=== PATIENT | male | born 1990 | race Caucasian/White ===

== ENCOUNTER 2016-08-18 11:44 | Emergency (ER) | payer OTHER ==
[~2016-08-18] VITALS: Ht 172.7 cm; Wt 71.4 kg
[2016-08-18 11:57] VITALS: BP 119/75
[2016-08-18] MEDS ORDERED: METHOCARBAMOL 750 MG TABLET ONE (12:25)
[2016-08-18] MEDS ORDERED: KETOROLAC 30 MG/1 ML ONE (12:25)
[2016-08-18] MEDS ORDERED: METHOCARBAMOL 750 MG TABLET PO ONE (12:30)
[2016-08-18] MEDS ORDERED: KETOROLAC 30 MG/1 ML IM ONE (12:30)
== END 2016-08-18 13:36 | disposition home or self-care (01) ==
LOC: ED 13:30
DX: S23.3XXA Sprain of ligaments of thoracic spine, initial encounter (principal); S29.012A Strain of muscle and tendon of back wall of thorax, initial encounter; T78.40XA Allergy, unspecified, initial encounter; X58.XXXA Exposure to other specified factors, initial encounter; Y93.89 Activity, other specified; Y92.89 Other specified places as the place of occurrence of the external cause; Y99.8 Other external cause status
CPT/HCPCS: 71101; 72072; 96372; 99284; J1885

== ENCOUNTER 2019-08-08 15:23 | Emergency (ER) | payer OTHER ==
[~2019-08-08] VITALS: Ht 175.3 cm; Wt 87.2 kg
[2019-08-08 15:25] VITALS: BP 121/80
--- NOTE | 2019-08-08 15:36 | NUR ---
[employer] BRIUGHT BACK AFTER WORSENING RASH TO BOTH HANDS, LEFT WORSE THAN RIGHT. CMS INTACT.
--- NOTE | 2019-08-08 16:16 | NUR ---
DISCHARGE INTRUCTIONS REVIEWED
--- NOTE | 2019-08-08 16:25 | NUR ---
Patient given discharge instructions and they have confirmed that they understand the instructions. Patient ambulatory with steady gait.
== END 2019-08-08 16:26 | disposition home or self-care (01) ==
LOC: ED 16:24
DX: L03.114 Cellulitis of left upper limb (principal); L30.1 Dyshidrosis [pompholyx]
CPT/HCPCS: 99283

== ENCOUNTER 2020-01-23 21:46 | Emergency (ER) | payer OTHER ==
[~2020-01-23] VITALS: Ht 175.3 cm; Wt 87.8 kg
[2020-01-23 21:53] VITALS: BP 124/76
[2020-01-23] MEDS ORDERED: MORPHINE SULFATE 4 MG/ML, 1ML IVPush PRN (23:00)
[2020-01-23] MEDS ORDERED: ONDANSETRON 2MG/ML, 2ML IVPush ONE (23:00)
[2020-01-23] MEDS ORDERED: SODIUM CHLORIDE FLUSH 10ML SYR IVF ONE (23:00)
[2020-01-23] MEDS ORDERED: ONDANSETRON 2MG/ML, 2ML ONE (23:03)
[2020-01-23] MEDS ORDERED: MORPHINE SULFATE 4 MG/ML, 1ML ONE (23:03)
[2020-01-23 23:25] LABS: BASOPHILS # (AUTO) 0.15 x10^3/uL (0-0.1); BASOPHILS % (AUTO) 1 % (0-1); EOSINOPHILS # (AUTO) 0.03 x10^3/uL (0-0.4); EOSINOPHILS % (AUTO) 0 % (1-7); LYMPHOCYTES # (AUTO) 1.95 x10^3/uL (1-3.4); LYMPHOCYTES % (AUTO) 18 % (22-44); MD NO; MEAN CORPUSCULAR HEMOGLOBIN 30.7 pg (27.5-34.5); MEAN CORPUSCULAR HGB CONC 33.3 g/dL (33.2-36.2); MEAN CORPUSCULAR VOLUME 92.2 fL (81-97); MEAN PLATELET VOLUME 7.1 fL (7.4-10.4); MONOCYTES # (AUTO) 0.76 x10^3/uL (0.2-0.8); MONOCYTES % (AUTO) 7 % (2-9); NEUTROPHILS # (AUTO) 8.22 x10^3/uL (1.8-6.8); NEUTROPHILS % (AUTO) 74 % (42-75); PLATELET COUNT 289 x10^3/uL (130-400); RED BLOOD COUNT 4.79 x10^6/uL (4.38-5.82); RED CELL DISTRIBUTION WIDTH 12.6 % (9.4-14.8)
[2020-01-23 23:29] LABS: ALANINE AMINOTRANSFERASE 23 U/L (12-78); ALBUMIN 4.1 g/dL (3.4-5.0); ANION GAP 8 mmol/L (5-15); CALCIUM 9.1 mg/dL (8.5-10.1); CHLORIDE 110 mmol/L (98-107); CREATININE 0.91 mg/dL (0.7-1.3)
[2020-01-23 23:31] LABS: ALKALINE PHOSPHATASE 75 U/L (45-117); BILIRUBIN,TOTAL 0.6 mg/dL (0.2-1.0); TOTAL PROTEIN 7.3 g/dL (6.4-8.2)
[2020-01-24] MEDS ORDERED: DIAZEPAM 5 MG/ML, 2ML IVPush ONE
[2020-01-24] MEDS ORDERED: DIAZEPAM 5 MG/ML, 2ML ONE (00:09)
== END 2020-01-24 00:58 | disposition home or self-care (01) ==
LOC: ED 23:00
DX: S16.1XXA Strain of muscle, fascia and tendon at neck level, initial encounter (principal); S39.012A Strain of muscle, fascia and tendon of lower back, initial encounter; V47.5XXA Car driver injured in collision with fixed or stationary object in traffic accident, initial encounter; Y93.89 Activity, other specified; Y92.89 Other specified places as the place of occurrence of the external cause; Y99.8 Other external cause status
CPT/HCPCS: 36415; 70450; 72125; 72128; 72131; 80053; 85025; 96374; 96375; 99285; J2270; J2405; J3360

== ENCOUNTER → 2020-03-10 | Outpatient (CLI) | payer OTHER ==
[2020-03-10 11:41] LABS: BASOPHILS % (AUTO) 0 % (0-1); EOSINOPHILS % (AUTO) 3 % (1-7); LYMPHOCYTES % (AUTO) 30 % (22-44); MD NO; MEAN CORPUSCULAR HEMOGLOBIN 30.1 pg (27.5-34.5); MEAN CORPUSCULAR HGB CONC 33.5 g/dL (33.2-36.2); MEAN PLATELET VOLUME 6.8 fL (7.4-10.4); MONOCYTES % (AUTO) 9 % (2-9); NEUTROPHILS % (AUTO) 58 % (42-75); PLATELET COUNT 287 x10^3/uL (130-400); RED BLOOD COUNT 5.05 x10^6/uL (4.38-5.82); RED CELL DISTRIBUTION WIDTH 12.5 % (9.4-14.8)
[2020-03-10 11:43] LABS: ALANINE AMINOTRANSFERASE 23 U/L (12-78); ANION GAP 5 mmol/L (5-15); CALCIUM 8.9 mg/dL (8.5-10.1); CHLORIDE 108 mmol/L (98-107); CHOLESTEROL, TOTAL 152 mg/dL (140-239); CREATININE 0.85 mg/dL (0.7-1.3); TRIGLYCERIDES 59 mg/dL (50-200); VLDL CHOLESTEROL 12 mg/dL (0-25)
[2020-03-10 11:46] LABS: ALKALINE PHOSPHATASE 86 U/L (45-117); BILIRUBIN,TOTAL 0.5 mg/dL (0.2-1.0); CHOL/HDL RATIO 2.5; HDL CHOL % 40 % (26-37); HDL CHOLESTEROL (DIRECT) 61 mg/dL (40-60); LDL CHOLESTEROL,CALCULATED 79 mg/dL (54-169); LDL/HDL RATIO 1.3 (0.5-3.0); TOTAL PROTEIN 7.4 g/dL (6.4-8.2)
== END | disposition home or self-care (01) ==
LOC: LAB 11:21
PROVIDERS: ATTEND Family Medicine
DX: Z00.00 Encounter for general adult medical examination without abnormal findings (principal); Z13.220 Encounter for screening for lipoid disorders; Z13.1 Encounter for screening for diabetes mellitus
CPT/HCPCS: 36415; 80053; 80061; 83036; 85025

== ENCOUNTER 2020-04-06 09:18 | Emergency (ER) | payer OTHER ==
[~2020-04-06] VITALS: Ht 177.8 cm; Wt 88.9 kg
--- NOTE | 2020-04-06 11:05 | NUR ---
TO ROOM FROM LOBBY [facility]WARDS, HARD TO BREATHE, FEVER, MUSCLE ACHES. LAST TYLENOL 0600 NOW AFEBRILE VSS NO WOB NOTED CLEAR LUNGS TO AUSCULTATION
[2020-04-06 12:35] VITALS: BP 158/90
== END 2020-04-06 12:37 | disposition home or self-care (01) ==
LOC: ED 11:08
DX: U07.1 COVID-19 (principal); J18.0 Bronchopneumonia, unspecified organism
CPT/HCPCS: 71045; 87635; 99284